=== PATIENT | female | born 2000 | race Caucasian/White ===

== ENCOUNTER 2023-09-12 14:56 | Outpatient (REF) | payer SELFPAY ==
[2023-09-16 09:52] LABS: C. trachomatis RNA TMA NOT DETECTED (NOT DETECTED); N. gonorrhoeae RNA TMA NOT DETECTED (NOT DETECTED); Trichomonas (NAAT) NOT DETECTED (NOT DETECTED)
== END 2023-09-12 14:57 | disposition home or self-care (01) ==
LOC: HO.CHCLNP 14:56
PROVIDERS: Visit Provider Advanced Practice Midwife
DX: Z12.4 Encounter for screening for malignant neoplasm of cervix (principal); Z20.2 Contact with and (suspected) exposure to infections with a predominantly sexual mode of transmission
CPT/HCPCS: 36415; 87491; 87591; 87661; 88142

== ENCOUNTER 2025-03-07 13:28 | Outpatient (REF) | payer SELFPAY ==
--- OUTSIDE RECORDS SUMMARY | 2025-03-07 13:58 | XMS_ITS | Data Portability ---
Author Organization [facility], [address] Address [address] [place] [address] Assessment No assessment recorded. Plan of Treatment Reminders Order Date Submit Date Provider Last Modified By Organization Details Last Modified Time Details Appointments None recorded. Lab urinalysis, dipstick 2022 023 [place] [address] [address], [address] [place], [address], 3 18:20:34 test, urine 2022 023 [place] [address] [address], [address] [place], [address], 3 18:20:35 culture, urine 2022 023 [facility] [address] [place] [address], [place], [address], 3 20:06:26 Referral None recorded. Procedures None recorded. Surgeries None recorded. Imaging None recorded. Medication Orders nitrofurant oin monohydrate /macrocryst als 100 mg capsule 2022 023 [id number], [address] [place], [id number], 3 18:28:59 Patient TargetsNo targets recorded. Patient InstructionsNo instructions recorded. Reason for Referral None Reported. Results Created Date Observation Date Name Description Value Unit Range Abnormal Flag Note LastModifiedBy Organization Detail LastModifiedTime 06/01/20 23 06/06/2023 URINE CULTU RE, ROUTI NE urine culture, routine FINAL REPORT abnormal Not Available [facility] [address] [facility], [place], [address], 06/06/2023 16:07:05 06/01/20 23 06/06/2023 URINE CULTU RE, ROUTI NE result 1 COMMEN T abnormal Staph yloco ccus sapro phyti cus The CLSI does not advis e routi ne susce ptibi lity testi ng of urina ry tract isola rob of Staph yloco ccus sapro phyti cus, becau se acute , uncom plica karyn urina ry tract infec tions cause d by this organ ism respo nd to emili ntrat ions achie emily in urine of antim icrob ial agent s commo nly used to treat these infec tions , such as nitro furan toin, a fluor oquin olone , or trime thopr im with or witho ut sulfa metho xazol e. CLSI, M100- S15, 2005. 50,00 0-100 ,000 colon y formi ng units per mL Not Available [facility] [address] [facility], [place], [address], 06/06/2023 16:07:05 06/01/20 23 06/01/2023 urina lysis , dipst ick Unknown Analyte Constantine Not Available [place] [address] [place], [address], 06/01/2023 18:06:55 06/01/20 23 06/01/2023 urina lysis , dipst ick Unknown Analyte Slight ly Cloudy Not Available becky bowen [address] [place], [address], 06/01/2023 18:06:55 06/01/20 23 06/01/2023 urina lysis , dipst ick Unknown Analyte 100 mg/dL Not Available becky bowen [address] [place], [address], 06/01/2023 18:06:55 06/01/20 23 06/01/2023 urina lysis , dipst ick Unknown Analyte Small Not Available joe [address] [place], [address], 06/01/2023 18:06:55 06/01/20 23 06/01/2023 urina lysis , dipst ick Unknown Analyte Trace Not Available joe [address] [place], [address], 06/01/2023 18:06:55 06/01/20 23 06/01/2023 urina lysis , dipst ick Unknown Analyte 1.015 Not Available joe [address] [place], [address], 06/01/2023 18:06:55 06/01/20 23 06/01/2023 urina lysis , dipst ick Unknown Analyte Trace- intact Not Available becky bowen [address] [place], [address], 06/01/2023 18:06:55 06/01/20 23 06/01/2023 urina lysis , dipst ick Unknown Analyte 5.0 Not Available joe [address] [place], [address], 06/01/2023 18:06:55 06/01/20 23 06/01/2023 urina lysis , dipst ick Unknown Analyte 30 mg/dL Not Available becky bowen [address] [place], [address], 06/01/2023 18:06:55 06/01/20 23 06/01/2023 urina lysis , dipst ick Unknown Analyte 2.0 E.U./d L Not Available becky bowen [facility] [address] [place], [address], 06/01/2023 18:06:55 06/01/2006/01/2023 urina lysis , dipst ick Unknown Analyte Positi ve Not Available _becky bowen [facility] [address] [place], [address], 06/01/2023 18:06:55 06/01/20 23 06/01/2023 urina lysis , dipst ick Unknown Analyte Large Not Available _ [place] [address] [place], [address], 06/01/2023 18:06:55 06/01/20 23 06/01/2023 pregn dora test, urine Unknown Analyte negati ve Not Available becky bowen [place] [address] [place], [address], 06/01/2023 18:07:11 06/01/20 23 06/01/2023 pregn dora test, urine Unknown Analyte yes Not Available [address] [place] [address] [place], [address], 06/01/2023 18:07:11 Result Notes None recorded. Problems Name Problem SNOMED Code Status Onset Date Resolution Date Notes Provider Name and Address Organization Details Recorded Time Asthma 053074413 Active 023 PARMJIT Negro - [facility] 06/01/2023 18:05:49 Problem Notes None recorded. Medical Equipment None Reported. Allergies No known drug allergies Medications Name Sig Start Date Stop Date Status Note LastModified by Organization Details LastModified Time nitrofuranto in monohydrate/ macrocrystal s 100 mg capsule Take 1 capsule every 12 hours by oral route for 5 days. 2022 active Not Available Not Available Not Avai lable albuterol 90 mcg-budesoni de 80 mcg/actuatio n HFA aerosol inhaler Inhale by inhalation route. active Not Available Not Available No t Available Vitals Date Recorded Body height Body mass index (BMI) Body weight Body temperature Respiratory rate Oxygen saturation Oxygen saturation in Arterial blood by Pulse oximetry Heart rate Systolic blood pressure Diastolic blood pressure Provider Name and Address Organization Details Last Updated DateTime 3 156.85 cm 20.8 kg/m2 88321.9 4 g 97.7 [degF] 16 /min 98 % 98 % 75 /min 110 mm[Hg] 70 mm[Hg] JORGE SHANNON PA - [facility] 18:08:39 Social History Question Answer Notes LastModified by [employer] Details LastModified Time Tobacco Smoking Status Never Smoker JORGE SHANNON elizabeth PA - [facility] 06/01/2023 18:06:20 Have You Recently Traveled Abroad? No [email or web address] Information not available 06/01/2023 Sex: Unknown Functional Status Question Answer Note LastModified by [employer] Details LastModified Time Do you use any illicit or recreational drugs? No [email or web address] Information not available 06/01/2023 Do you or have you ever used any other forms of tobacco or nicotine? No Information not available 06/01/2023 What is your level of alcohol consumption? None [email or web address] Information not available 06/01/2023 Mental Status None recorded. Family History Relationship Description Onset Age of this Age Resolved Age Notes LastModified by Organization Details LastModified Time Father No current problems or disability [email or web address] Not available 06/01 18:06:02 Mother No current problems or disability [email or web address] Not available 06/01 18:06:02 Medical History No medical history recorded. Gynecological History Statement/Question Response Date of LMP 05/06/2023 Is there any chance of ? No Obstetrics History GPAL:G 0 P 0 0 0 0 Past Encounters Encounter ID Performer Location Encounter Start Date Encounter Closed Date Diagnosis/Indication Diagnosis SNOMED-CT Code Diagnosis ICD10 Code Diagnosis [place] [id number] [place] [address] [place] [address] 06/01/2023 17:47:46 06/01/2023 18:30:43 Acute urinary tract infection 260481277 N39.0 Advised to drink clear fluids, Tylenol for pain and take prescribed medication s as instructed .Patient encouraged to follow up within 1 week if not improving. We have sent a Culture out to confirm the presence of a UTI and you will receive a call wit results in 2-3 daysYou can take Over the Counter AZO for the pain Health Concerns Section Related Observation LastModified by Organization Detai ls LastModified Time None Recorded Concern Status LastModified by Organization Details LastModified Time None Recorded Advance Directives Directive None Recorded Payers Insurance Date Sequence Insurance Name Policy Number Policy Estevez Covered Member ID Estevez Member ID Guarantor Name 06/01/2023 1 [employer] (POS) [id number] Donita Simental [id number] Donita Simental Notes Date Note Type Note Provider Name and Address Organization Details Recorded Time 3 text/html Urinary Complaint FemaleReported bypatient.source of patient informationInformation obtained from patient; Patient arrived at Urgent Care ambulatory UTI Symptoms:no blood in the urine;pain during urination;urgency;urinary frequency Severity:moderate Duration:2 days Modifying Factors:nothing gives relief Francie Clinton [place] [facility] [place], [address], [place] - [facility] 06/01/2023 18:30:19 OBGyn Episode No OBEpisode recorded.
[2025-03-07 15:12] LABS: HCG Quantitative 98 mIU/mL
== END 2025-03-07 13:29 | disposition home or self-care (01) ==
LOC: HO.CHCLDS 13:28
PROVIDERS: Visit Provider Student in an Organized Health Care Education/Training Program
DX: Z32.00 Encounter for pregnancy test, result unknown (principal)
CPT/HCPCS: 36415; 84702